=== PATIENT | male | born 1955 | race Caucasian/White ===

== ENCOUNTER 2018-06-30 21:13 | Inpatient (IN) | payer MEDICAID ==
[~2018-06-30] VITALS: Ht 172.7 cm; Wt 88.0 kg
[2018-06-30] MEDS ORDERED: VANCOMYCIN 1 G PREMIX 200 ML IV ONE (22:45)
[2018-06-30] MEDS ORDERED: SODIUM CHLORIDE 0.9% 1000ML BAG (SEPSIS BOLUS) IV ONE (22:45)
[2018-06-30] MEDS ORDERED: PIPERACILLIN/TAZ 3.375G PREMIX 50 ML IV ONE (22:45)
[2018-06-30 23:37] LABS: CHLORIDE 116 mEq/L (98-107)
[2018-06-30 23:43] LABS: HEMATOCRIT. 27.8 % (42.0-52.0); HEMOGLOBIN. 9.2 g/dL (14.0-18.0); MEAN CORPUSCULAR HEMOGLOBIN 28.2 pg (28.0-32.0); MEAN CORPUSCULAR VOLUME 85.4 fL (80.0-94.0); MEAN PLATELET VOLUME 7.7 fl (7.4-10.4); PLATELET 170 x1000/uL (130-400); RED BLOOD CELL COUNT 3.26 mill/uL (4.7-6.1); RED CELL DISTRIBUTION WIDTH 15.3 % (11.6-14.6)
[2018-06-30 23:51] LABS: D-DIMER 12.05 mg/L FEU (<0.50); INR 1.2; PARTIAL THROMBOPLASTIN TIME 27.1 sec (23.4-31.0); PROTHROMBIN TIME 12.5 sec (9.6-11.0)
[2018-07-01] VITALS (8 sets, daily range): BP systolic 81–133; BP diastolic 48–66
[2018-07-01] MEDS ORDERED: ASPIRIN 81MG TABLET PO ONE (00:15)
[2018-07-01] MEDS ORDERED: LORAZEPAM 2MG/ML CPJ IV PRN (00:45)
[2018-07-01] MEDS ORDERED: HYDROCODONE/ACETAMINOPHEN 10/325MG TABLET PO PRN (00:45)
[2018-07-01] MEDS ORDERED: NA PHOS,M-B/NA PHOS,DI-BA ENEMA 118ML PR PRN (00:45)
[2018-07-01] MEDS ORDERED: ENOXAPARIN 40MG/0.4ML SYR SUBCUT SCH (00:45)
[2018-07-01] MEDS ORDERED: HYDRALAZINE 20MG/ML VIAL IV PRN (00:45)
[2018-07-01] MEDS ORDERED: DOCUSATE SODIUM 100MG CAPSULE PO PRN (00:45)
[2018-07-01] MEDS ORDERED: DIPHENHYDRAMINE 50MG/ML VIAL IV PRN (00:45)
[2018-07-01] MEDS ORDERED: ONDANSETRON HCL 4MG/2ML INJ IV PRN (00:45)
[2018-07-01] MEDS ORDERED: CLONIDINE 0.1MG TABLET PO PRN (00:45)
[2018-07-01] MEDS ORDERED: IPRATROPIUM/ALBUTEROL 0.5-3(2.5)MG/3ML NEB INH PRN (00:45)
[2018-07-01] MEDS ORDERED: GUAIFENESIN 200MG/10ML SUGAR FREE UDC PO PRN (00:45)
[2018-07-01] MEDS ORDERED: DEXTROSE 50% WATER 50ML SYRINGE IV PRN (00:45)
[2018-07-01] MEDS ORDERED: PIPERACILLIN/TAZ 2.25G PREMIX 50 ML IV SCH ×2 (00:45→14:00)
[2018-07-01] MEDS ORDERED: MAGNESIUM/ALUMINUM HYDROXIDE/SIMETHICONE 30ML UDC PO PRN (00:45)
[2018-07-01 01:08] LABS: PLATELET ESTIMATE NORMAL
[2018-07-01] MEDS ORDERED: IOHEXOL-350 100 ML BOTTLE ONE (02:23)
[2018-07-01] MEDS ORDERED: ENOXAPARIN 80MG/0.8ML SYR SUBCUT ONE (02:30)
[2018-07-01] MEDS: ACETAMINOPHEN 325MG TABLET PO PRN ×2 (05:41→20:48)
[2018-07-01 06:32] LABS: CREATINE KINASE 90 IU/L (39-308)
[2018-07-01 06:33] LABS: CREATINE KINASE MB FRACTION < 1.0 ng/mL (0.5-3.6)
[2018-07-01] MEDS: INSULIN LISPRO 100 UNITS/ML SUBCUT SCH ×4 (07:50→21:14)
[2018-07-01] MEDS: BLOOD SUGAR DIAGNOSTIC STRIP TEST SCH ×4 (07:59→20:49)
[2018-07-01] MEDS ORDERED: PIPERACILLIN/TAZ 3.375G PREMIX 50 ML IV SCH (09:00)
[2018-07-01] MEDS ORDERED: ENOXAPARIN 30MG/0.3ML SYR SUBCUT SCH (09:00)
[2018-07-01] MEDS: ASPIRIN 81MG EC TABLET PO SCH (09:58)
[2018-07-01] MEDS: PIPERACILLIN/TAZ 3.375G PREMIX 50 ML IV SCH ×3 (09:58→20:48)
[2018-07-01] MEDS: SODIUM CHLORIDE 0.9% 1,000 ML IV SCH ×2 (10:00→21:03)
[2018-07-01] MEDS ORDERED: VANCOMYCIN 1250MG in DEXTROSE 5% WATER 250ML IV SCH (11:00)
[2018-07-01] MEDS: SODIUM CHLORIDE 0.9% INJ 3ML FLUSH IVF SCH ×2 (14:00→21:04)
[2018-07-01] MEDS ORDERED: ENOXAPARIN 80MG/0.8ML SYR SUBCUT SCH (16:00)
[2018-07-01 17:36] LABS: CREATINE KINASE 108 IU/L (39-308)
[2018-07-01 17:38] LABS: CREATINE KINASE MB FRACTION < 1.0 ng/mL (0.5-3.6)
[2018-07-01] MEDS: ENOXAPARIN 60MG/0.6ML SYR SUBCUT SCH (20:49)
[2018-07-01] MEDS: VANCOMYCIN 750 MG PREMIX 150 ML IV SCH (22:53)
[2018-07-02] VITALS: BP 102/51
[2018-07-02] MEDS: PIPERACILLIN/TAZ 3.375G PREMIX 50 ML IV SCH ×2 (03:24→10:40)
[2018-07-02 04:00] VITALS: BP 131/69
[2018-07-02] MEDS: ACETAMINOPHEN 325MG TABLET PO PRN ×2 (05:05→20:48)
[2018-07-02] MEDS: VANCOMYCIN 750 MG PREMIX 150 ML IV SCH ×3 (05:06→22:21)
[2018-07-02] MEDS: SODIUM CHLORIDE 0.9% INJ 3ML FLUSH IVF SCH ×3 (05:06→21:25)
[2018-07-02 07:00] LABS: HEMATOCRIT. 23.6 % (42.0-52.0); MEAN CORPUSCULAR HEMOGLOBIN 28.7 pg (28.0-32.0); MEAN CORPUSCULAR VOLUME 83.9 fL (80.0-94.0); MEAN PLATELET VOLUME 9.2 fl (7.4-10.4); PLATELET 69 x1000/uL (130-400); RED BLOOD CELL COUNT 2.81 mill/uL (4.7-6.1); RED CELL DISTRIBUTION WIDTH 15.9 % (11.6-14.6)
[2018-07-02 07:04] LABS: CHLORIDE 116 mEq/L (98-107)
[2018-07-02 07:23] LABS: HDL CHOLESTEROL 9 mg/dL (40-59); T4 FREE 1.49 ng/dL (0.76-1.46)
[2018-07-02 07:25] LABS: LDL CHOLESTEROL 24 mg/dL (5-100)
[2018-07-02] MEDS: BLOOD SUGAR DIAGNOSTIC STRIP TEST SCH ×4 (07:28→20:49)
[2018-07-02 08:00] VITALS: BP 98/58
[2018-07-02] MEDS: ASPIRIN 81MG EC TABLET PO SCH (08:31)
[2018-07-02] MEDS: ENOXAPARIN 60MG/0.6ML SYR SUBCUT SCH (08:32)
[2018-07-02] MEDS: INSULIN LISPRO 100 UNITS/ML SUBCUT SCH ×4 (08:42→20:49)
[2018-07-02] MEDS ORDERED: POTASSIUM CHLORIDE 20MEQ TABLET SR PO NR (09:00)
[2018-07-02 09:58] LABS: PLATELET ESTIMATE DECREASED
[2018-07-02] MEDS: SODIUM CHLORIDE 0.9% 1,000 ML IV SCH ×2 (11:10→20:55)
[2018-07-02] MEDS: HYDROMORPHONE HCL/PF 2MG/ML CPJ IV PRN (11:40)
[2018-07-02 12:00] VITALS: BP 97/52
[2018-07-02 16:00] VITALS: BP 98/55
[2018-07-02] MEDS: MEROPENEM 1000MG in NORMAL SALINE 100ML IV SCH (18:25)
[2018-07-02] MEDS: APIXABAN 5 MG TABLET PO SCH (18:26)
[2018-07-02 20:33] VITALS: BP 124/52
[2018-07-03] VITALS: BP 129/58
[2018-07-03] MEDS: MEROPENEM 1000MG in NORMAL SALINE 100ML IV SCH ×3 (02:41→18:18)
[2018-07-03 04:00] VITALS: BP 119/54
[2018-07-03 05:48] LABS: HEMATOCRIT. 23.3 % (42.0-52.0); HEMOGLOBIN. 7.8 g/dL (14.0-18.0); MEAN CORPUSCULAR HEMOGLOBIN 28.3 pg (28.0-32.0); MEAN CORPUSCULAR VOLUME 83.9 fL (80.0-94.0); MEAN PLATELET VOLUME 10.1 fl (7.4-10.4); PLATELET 53 x1000/uL (130-400); RED BLOOD CELL COUNT 2.77 mill/uL (4.7-6.1)
[2018-07-03] MEDS: VANCOMYCIN 750 MG PREMIX 150 ML IV SCH (06:03)
[2018-07-03] MEDS: SODIUM CHLORIDE 0.9% INJ 3ML FLUSH IVF SCH ×3 (06:03→21:19)
[2018-07-03 06:11] LABS: CHLORIDE 114 mEq/L (98-107)
[2018-07-03 06:24] LABS: VANCOMYCIN TROUGH 20.6 ug/mL (5.0-10.0)
[2018-07-03] MEDS: BLOOD SUGAR DIAGNOSTIC STRIP TEST SCH ×4 (06:39→21:11)
[2018-07-03 08:54] VITALS: BP 126/69
[2018-07-03] MEDS: ASPIRIN 81MG EC TABLET PO SCH (09:14)
[2018-07-03] MEDS: APIXABAN 5 MG TABLET PO SCH (09:14)
[2018-07-03] MEDS: INSULIN LISPRO 100 UNITS/ML SUBCUT SCH ×4 (09:17→21:19)
[2018-07-03 10:33] LABS: PLATELET ESTIMATE DECREASED
[2018-07-03 12:39] VITALS: BP 124/73
[2018-07-03] MEDS: SODIUM CHLORIDE 0.9% 1,000 ML IV SCH (15:53)
[2018-07-03 17:25] VITALS: BP 119/71
[2018-07-03 20:00] VITALS: BP 147/82
[2018-07-03] MEDS ORDERED: DEXTROSE 50% WATER 50ML SYRINGE IV PRN (23:45)
[2018-07-04] VITALS (7 sets, daily range): BP systolic 102–131; BP diastolic 58–73
[2018-07-04] MEDS: MEROPENEM 1000MG in NORMAL SALINE 100ML IV SCH ×3 (01:13→18:45)
[2018-07-04] MEDS: SODIUM CHLORIDE 0.9% 1,000 ML IV SCH ×2 (01:14→18:45)
[2018-07-04 06:08] LABS: HEMATOCRIT. 21.4 % (42.0-52.0); HEMOGLOBIN. 7.2 g/dL (14.0-18.0); MEAN CORPUSCULAR HEMOGLOBIN 27.9 pg (28.0-32.0); MEAN CORPUSCULAR VOLUME 83.1 fL (80.0-94.0); MEAN PLATELET VOLUME 9.8 fl (7.4-10.4); RED BLOOD CELL COUNT 2.57 mill/uL (4.7-6.1); RED CELL DISTRIBUTION WIDTH 16.1 % (11.6-14.6)
[2018-07-04 06:29] LABS: CHLORIDE 113 mEq/L (98-107)
[2018-07-04] MEDS: SODIUM CHLORIDE 0.9% INJ 3ML FLUSH IVF SCH ×3 (06:46→23:46)
[2018-07-04] MEDS: BLOOD SUGAR DIAGNOSTIC STRIP TEST SCH ×4 (06:46→21:37)
[2018-07-04 06:50] LABS: PLATELET 33 x1000/uL (130-400)
[2018-07-04] MEDS: ASPIRIN 81MG EC TABLET PO SCH (08:28)
[2018-07-04] MEDS: INSULIN LISPRO 100 UNITS/ML SUBCUT SCH ×4 (08:52→21:58)
[2018-07-04 13:14] LABS: PLATELET ESTIMATE MARKEDLY DECREASED
[2018-07-04] MEDS ORDERED: DIATR MEGLU/DIATRIZOATE SOLN 30ML PO SCH (14:30)
[2018-07-04] MEDS: HYDROMORPHONE HCL/PF 2MG/ML CPJ IV PRN (17:39)
[2018-07-04] MEDS ORDERED: SODIUM CHLORIDE 0.9% 500 ML IV ONE (21:30)
[2018-07-04] MEDS: ACETAMINOPHEN 650MG SUPP PR PRN (23:34)
[2018-07-05] VITALS (13 sets, daily range): BP systolic 93–147; BP diastolic 54–80
[2018-07-05] MEDS: MEROPENEM 1000MG in NORMAL SALINE 100ML IV SCH ×3 (01:07→17:03)
[2018-07-05 06:03] LABS: CHLORIDE 114 mEq/L (98-107)
[2018-07-05] MEDS: SODIUM CHLORIDE 0.9% INJ 3ML FLUSH IVF SCH ×3 (06:05→22:00)
[2018-07-05] MEDS: SODIUM CHLORIDE 0.9% 1,000 ML IV SCH ×2 (06:05→21:14)
[2018-07-05] MEDS: BLOOD SUGAR DIAGNOSTIC STRIP TEST SCH ×4 (06:10→21:00)
[2018-07-05 06:17] LABS: HEMATOCRIT. 23.3 % (42.0-52.0); HEMOGLOBIN. 7.7 g/dL (14.0-18.0); MEAN CORPUSCULAR HEMOGLOBIN 27.8 pg (28.0-32.0); MEAN CORPUSCULAR VOLUME 83.7 fL (80.0-94.0); RED BLOOD CELL COUNT 2.78 mill/uL (4.7-6.1); RED CELL DISTRIBUTION WIDTH 16.5 % (11.6-14.6)
[2018-07-05] MEDS: ASPIRIN 81MG EC TABLET PO SCH (07:56)
[2018-07-05] MEDS: INSULIN LISPRO 100 UNITS/ML SUBCUT SCH ×4 (08:04→21:24)
[2018-07-05] MEDS ORDERED: DIATR MEGLU/DIATRIZOATE SOLN 30ML PO NR (09:00)
[2018-07-05 10:16] LABS: PLATELET 58 x1000/uL (130-400)
[2018-07-05 10:25] LABS: PLATELET ESTIMATE DECREASED
[2018-07-05] MEDS: ACETAMINOPHEN 650MG SUPP PR PRN (20:55)
[2018-07-05 23:50] LABS: CLARITY URINE CLOUDY (CLEAR); COLOR URINE DARK YELLOW (YELLOW); KETONES URINE NEGATIVE (NEGATIVE); LEUKOCYTE ESTERASE URINE 1+ (NEGATIVE); NITRITE URINE POSITIVE (NEGATIVE); OCCULT BLOOD URINE NEGATIVE (NEGATIVE); PH URINE 5.5 (4.5-8.0); PROTEIN URINE 1+ (NEGATIVE); SPECIFIC GRAVITY URINE 1.021 (1.005-1.030); UROBILINOGEN URINE 0.2 E.U./dL (0.2-1.0)
[2018-07-06] VITALS (12 sets, daily range): BP systolic 94–165; BP diastolic 42–78
[2018-07-06] MEDS: METOCLOPRAMIDE HCL 10MG/2ML VIAL IV PRN ×2 (00:14→20:30)
[2018-07-06] MEDS: MEROPENEM 1000MG in NORMAL SALINE 100ML IV SCH ×3 (01:50→17:06)
[2018-07-06] MEDS: ACETAMINOPHEN 650MG SUPP PR PRN ×2 (02:28→20:30)
[2018-07-06] MEDS: SODIUM CHLORIDE 0.9% INJ 3ML FLUSH IVF SCH ×3 (06:33→22:00)
[2018-07-06] MEDS: BLOOD SUGAR DIAGNOSTIC STRIP TEST SCH ×4 (06:33→21:00)
[2018-07-06 06:47] LABS: HEMATOCRIT. 23.5 % (42.0-52.0); HEMOGLOBIN. 8.2 g/dL (14.0-18.0); MEAN CORPUSCULAR HEMOGLOBIN 28.4 pg (28.0-32.0); MEAN CORPUSCULAR VOLUME 81.8 fL (80.0-94.0); MEAN PLATELET VOLUME 10.3 fl (7.4-10.4); PLATELET 66 x1000/uL (130-400); RED BLOOD CELL COUNT 2.88 mill/uL (4.7-6.1); RED CELL DISTRIBUTION WIDTH 16.6 % (11.6-14.6)
[2018-07-06 06:49] LABS: CHLORIDE 109 mEq/L (98-107)
[2018-07-06] MEDS: ASPIRIN 81MG EC TABLET PO SCH (07:54)
[2018-07-06] MEDS: INSULIN LISPRO 100 UNITS/ML SUBCUT SCH ×4 (07:55→21:47)
[2018-07-06] MEDS: SODIUM CHLORIDE 0.9% 1,000 ML IV SCH ×2 (08:30→21:50)
[2018-07-06 11:27] LABS: PLATELET ESTIMATE DECREASED
[2018-07-06] MEDS: ACETAMINOPHEN 325MG TABLET PO PRN (12:56)
[2018-07-07] VITALS (24 sets, daily range): BP systolic 92–178; BP diastolic 47–97
[2018-07-07] MEDS: MEROPENEM 1000MG in NORMAL SALINE 100ML IV SCH ×3 (02:00→21:45)
[2018-07-07] MEDS: METOCLOPRAMIDE HCL 10MG/2ML VIAL IV PRN ×3 (02:00→22:28)
[2018-07-07] MEDS: ACETAMINOPHEN 650MG SUPP PR PRN ×3 (02:26→20:39)
[2018-07-07] MEDS: SODIUM CHLORIDE 0.9% INJ 3ML FLUSH IVF SCH ×3 (06:00→22:50)
[2018-07-07 06:45] LABS: HEMOGLOBIN. 7.2 g/dL (14.0-18.0); MEAN CORPUSCULAR HEMOGLOBIN 27.8 pg (28.0-32.0); MEAN CORPUSCULAR VOLUME 80.5 fL (80.0-94.0); MEAN PLATELET VOLUME 10.2 fl (7.4-10.4); PLATELET 123 x1000/uL (130-400); RED BLOOD CELL COUNT 2.58 mill/uL (4.7-6.1); RED CELL DISTRIBUTION WIDTH 16.2 % (11.6-14.6)
[2018-07-07] MEDS: BLOOD SUGAR DIAGNOSTIC STRIP TEST SCH ×4 (06:50→21:49)
[2018-07-07 07:11] LABS: HEMATOCRIT. 20.7 % (42.0-52.0)
[2018-07-07 07:13] LABS: CHLORIDE 104 mEq/L (98-107)
[2018-07-07] MEDS: ASPIRIN 81MG EC TABLET PO SCH (08:02)
[2018-07-07] MEDS: INSULIN LISPRO 100 UNITS/ML SUBCUT SCH ×4 (08:09→22:42)
[2018-07-07 11:41] LABS: PLATELET ESTIMATE SLIGHTLY DECREASED
[2018-07-07] MEDS: SODIUM CHLORIDE 0.9% 1,000 ML IV SCH (11:44)
[2018-07-07] MEDS ORDERED: KCL 20MEQ/100ML PREMIX 100 ML IV NR ×2 (14:00→22:00)
[2018-07-07] MEDS: DEXT 5%/0.45% NACL 1000ML 1,000 ML IV SCH (21:46)
[2018-07-07 22:36] LABS: HEMATOCRIT 28.3 % (42.0-52.0); HEMOGLOBIN 9.8 g/dL (14.0-18.0)
[2018-07-08] VITALS (16 sets, daily range): BP systolic 93–174; BP diastolic 45–99
[2018-07-08] MEDS: ACETAMINOPHEN 650MG SUPP PR PRN ×2 (02:17→20:39)
[2018-07-08] MEDS: METOCLOPRAMIDE HCL 10MG/2ML VIAL IV PRN (04:22)
[2018-07-08] MEDS: MEROPENEM 1000MG in NORMAL SALINE 100ML IV SCH ×3 (05:11→18:16)
[2018-07-08] MEDS: BLOOD SUGAR DIAGNOSTIC STRIP TEST SCH ×4 (06:02→21:37)
[2018-07-08] MEDS: SODIUM CHLORIDE 0.9% INJ 3ML FLUSH IVF SCH ×3 (06:02→22:10)
[2018-07-08] MEDS: INSULIN LISPRO 100 UNITS/ML SUBCUT SCH ×4 (07:41→21:54)
[2018-07-08 07:55] LABS: CHLORIDE 105 mEq/L (98-107)
[2018-07-08 08:16] LABS: HEMATOCRIT. 24.7 % (42.0-52.0); HEMOGLOBIN. 8.6 g/dL (14.0-18.0); MEAN CORPUSCULAR HEMOGLOBIN 28.7 pg (28.0-32.0); MEAN CORPUSCULAR VOLUME 82.3 fL (80.0-94.0); MEAN PLATELET VOLUME 9.6 fl (7.4-10.4); PLATELET 175 x1000/uL (130-400); RED CELL DISTRIBUTION WIDTH 16.8 % (11.6-14.6)
[2018-07-08] MEDS: ASPIRIN 81MG EC TABLET PO SCH (09:00)
[2018-07-08] MEDS ORDERED: POTASSIUM CHLORIDE INJ 40 MEQ in DEXT 5% WATER 250 ML IV NR (11:00)
[2018-07-08 12:43] LABS: PLATELET ESTIMATE NORMAL
[2018-07-08] MEDS: DEXT 5%/0.45% NACL 1000ML 1,000 ML IV SCH (13:03)
[2018-07-08] MEDS ORDERED: CHLORPROMAZINE HCL 10 MG TABLET PO PRN (14:30)
[2018-07-08] MEDS ORDERED: APIXABAN 5 MG TABLET PO SCH (15:00)
[2018-07-08] MEDS: MORPHINE SULFATE 2 MG/ML CPJ (NOT FOR IM USE) IV PRN ×2 (16:30→20:40)
[2018-07-08 17:40] LABS: HEMATOCRIT 23.5 % (42.0-52.0); HEMOGLOBIN 8.2 g/dL (14.0-18.0); MEAN CORPUSCULAR HEMOGLOBIN 28.6 pg (28.0-32.0); MEAN CORPUSCULAR VOLUME 81.8 fL (80.0-94.0); PLATELET 189 x1000/uL (130-400); RED BLOOD CELL COUNT 2.87 mill/uL (4.7-6.1); RED CELL DISTRIBUTION WIDTH 16.7 % (11.6-14.6)
[2018-07-08] MEDS: HEPARIN 5000 UNITS/ML VIAL SUBCUT SCH (22:00)
[2018-07-09] VITALS (12 sets, daily range): BP systolic 81–152; BP diastolic 39–77
[2018-07-09] MEDS: MORPHINE SULFATE 2 MG/ML CPJ (NOT FOR IM USE) IV PRN ×4 (02:03→22:53)
[2018-07-09] MEDS: MEROPENEM 1000MG in NORMAL SALINE 100ML IV SCH ×2 (02:15→10:39)
[2018-07-09] MEDS: PROCHLORPERAZINE 10MG/2ML VIAL IV PRN ×3 (02:16→14:00)
[2018-07-09] MEDS: SODIUM CHLORIDE 0.9% INJ 3ML FLUSH IVF SCH ×3 (05:24→21:59)
[2018-07-09 06:00] LABS: HEMATOCRIT. 22.4 % (42.0-52.0); HEMOGLOBIN. 7.8 g/dL (14.0-18.0); MEAN CORPUSCULAR HEMOGLOBIN 28.6 pg (28.0-32.0); MEAN CORPUSCULAR VOLUME 82.4 fL (80.0-94.0); MEAN PLATELET VOLUME 9.2 fl (7.4-10.4); PLATELET 212 x1000/uL (130-400); RED BLOOD CELL COUNT 2.71 mill/uL (4.7-6.1); RED CELL DISTRIBUTION WIDTH 16.9 % (11.6-14.6)
[2018-07-09] MEDS: HEPARIN 5000 UNITS/ML VIAL SUBCUT SCH ×3 (06:00→21:58)
[2018-07-09] MEDS: BLOOD SUGAR DIAGNOSTIC STRIP TEST SCH ×4 (06:17→21:13)
[2018-07-09 06:43] LABS: CHLORIDE 107 mEq/L (98-107)
[2018-07-09] MEDS: INSULIN LISPRO 100 UNITS/ML SUBCUT SCH ×4 (07:57→21:16)
[2018-07-09] MEDS: ASPIRIN 81MG EC TABLET PO SCH (09:00)
[2018-07-09 10:38] LABS: PLATELET ESTIMATE NORMAL
[2018-07-09] MEDS: DEXT 5%/0.45% NACL 1000ML 1,000 ML IV SCH (12:02)
[2018-07-09] MEDS ORDERED: POTASSIUM CHLORIDE INJ 40 MEQ in DEXT 5% WATER 250 ML IV NR (13:00)
[2018-07-09] MEDS: LEVOFLOXACIN 500MG PREMIX 100 ML IV SCH (16:08)
[2018-07-09] MEDS: CHLORPROMAZINE HCL 25MG/1ML AMP IM PRN (16:22)
[2018-07-09] MEDS: AMPICILLIN SOD/SULBACTAM NA 3 G in SODIUM CHLORIDE 0.9% 100 ML IV SCH ×2 (17:31→21:13)
[2018-07-10] VITALS (13 sets, daily range): BP systolic 85–150; BP diastolic 42–73
[2018-07-10] MEDS: AMPICILLIN SOD/SULBACTAM NA 3 G in SODIUM CHLORIDE 0.9% 100 ML IV SCH ×4 (03:10→20:35)
[2018-07-10] MEDS: SODIUM CHLORIDE 0.9% INJ 3ML FLUSH IVF SCH ×3 (06:23→23:25)
[2018-07-10] MEDS: HEPARIN 5000 UNITS/ML VIAL SUBCUT SCH ×3 (06:25→23:34)
[2018-07-10] MEDS: BLOOD SUGAR DIAGNOSTIC STRIP TEST SCH ×4 (07:00→21:00)
[2018-07-10] MEDS: ASPIRIN 81MG EC TABLET PO SCH (08:50)
[2018-07-10] MEDS ORDERED: APIXABAN 5 MG TABLET PO SCH (09:00)
[2018-07-10] MEDS: INSULIN LISPRO 100 UNITS/ML SUBCUT SCH ×4 (09:03→21:49)
[2018-07-10] MEDS: MORPHINE SULFATE 2 MG/ML CPJ (NOT FOR IM USE) IV PRN ×3 (09:48→23:24)
[2018-07-10] MEDS: CHLORPROMAZINE HCL 25MG/1ML AMP IM PRN ×2 (10:21→17:38)
[2018-07-10] MEDS: DEXT 5%/0.45% NACL 1000ML 1,000 ML IV SCH (13:23)
[2018-07-10] MEDS: LEVOFLOXACIN 500MG PREMIX 100 ML IV SCH (13:23)
[2018-07-10] MEDS: PROCHLORPERAZINE 10MG/2ML VIAL IV PRN (21:47)
[2018-07-11] VITALS (12 sets, daily range): BP systolic 81–152; BP diastolic 39–92
[2018-07-11] MEDS: AMPICILLIN SOD/SULBACTAM NA 3 G in SODIUM CHLORIDE 0.9% 100 ML IV SCH ×4 (03:12→20:52)
[2018-07-11] MEDS: MORPHINE SULFATE 2 MG/ML CPJ (NOT FOR IM USE) IV PRN ×2 (03:12→17:44)
[2018-07-11] MEDS: HEPARIN 5000 UNITS/ML VIAL SUBCUT SCH (06:16)
[2018-07-11] MEDS: SODIUM CHLORIDE 0.9% INJ 3ML FLUSH IVF SCH ×3 (06:16→22:23)
[2018-07-11] MEDS: BLOOD SUGAR DIAGNOSTIC STRIP TEST SCH ×4 (06:56→21:30)
[2018-07-11] MEDS: CHLORPROMAZINE HCL 25MG/1ML AMP IM PRN (06:56)
[2018-07-11 07:40] LABS: MEAN CORPUSCULAR HEMOGLOBIN 28.4 pg (28.0-32.0); MEAN CORPUSCULAR VOLUME 82.6 fL (80.0-94.0); MEAN PLATELET VOLUME 9.2 fl (7.4-10.4); PLATELET 348 x1000/uL (130-400); RED BLOOD CELL COUNT 2.35 mill/uL (4.7-6.1); RED CELL DISTRIBUTION WIDTH 17.8 % (11.6-14.6)
[2018-07-11] MEDS: INSULIN LISPRO 100 UNITS/ML SUBCUT SCH ×4 (07:47→21:34)
[2018-07-11 07:50] LABS: CHLORIDE 110 mEq/L (98-107)
[2018-07-11] MEDS: ASPIRIN 81MG EC TABLET PO SCH (08:03)
[2018-07-11] MEDS: PROCHLORPERAZINE 10MG/2ML VIAL IV PRN ×2 (08:05→13:20)
[2018-07-11 08:36] LABS: HEMOGLOBIN. 6.7 g/dL (14.0-18.0)
[2018-07-11 08:37] LABS: HEMATOCRIT. 19.4 % (42.0-52.0)
[2018-07-11] MEDS: DEXT 5%/0.45% NACL 1000ML 1,000 ML IV SCH (11:52)
[2018-07-11] MEDS: LEVOFLOXACIN 500MG PREMIX 100 ML IV SCH (14:23)
[2018-07-11 16:58] LABS: PLATELET ESTIMATE NORMAL
[2018-07-12] VITALS (16 sets, daily range): BP systolic 75–106; BP diastolic 37–57
[2018-07-12] MEDS: CHLORPROMAZINE HCL 25MG/1ML AMP IM PRN ×2 (01:56→18:54)
[2018-07-12] MEDS: AMPICILLIN SOD/SULBACTAM NA 3 G in SODIUM CHLORIDE 0.9% 100 ML IV SCH ×4 (02:51→21:46)
[2018-07-12] MEDS: SODIUM CHLORIDE 0.9% INJ 3ML FLUSH IVF SCH ×3 (05:50→21:19)
[2018-07-12] MEDS: BLOOD SUGAR DIAGNOSTIC STRIP TEST SCH ×4 (06:49→21:14)
[2018-07-12] MEDS: INSULIN LISPRO 100 UNITS/ML SUBCUT SCH ×4 (06:52→21:30)
[2018-07-12] MEDS: ASPIRIN 81MG EC TABLET PO SCH (09:00)
[2018-07-12] MEDS: DEXT 5%/0.45% NACL 1000ML 1,000 ML IV SCH (13:36)
[2018-07-12] MEDS: LEVOFLOXACIN 500MG PREMIX 100 ML IV SCH (13:36)
[2018-07-12] MEDS: MORPHINE SULFATE 2 MG/ML CPJ (NOT FOR IM USE) IV PRN (21:17)
[2018-07-13] VITALS (11 sets, daily range): BP systolic 81–101; BP diastolic 38–56
[2018-07-13] MEDS: MORPHINE SULFATE 2 MG/ML CPJ (NOT FOR IM USE) IV PRN ×2 (04:24→13:06)
[2018-07-13] MEDS: AMPICILLIN SOD/SULBACTAM NA 3 G in SODIUM CHLORIDE 0.9% 100 ML IV SCH ×3 (04:25→15:04)
[2018-07-13] MEDS: INSULIN LISPRO 100 UNITS/ML SUBCUT SCH ×2 (05:30→13:02)
[2018-07-13] MEDS: BLOOD SUGAR DIAGNOSTIC STRIP TEST SCH ×2 (05:38→11:50)
[2018-07-13] MEDS: SODIUM CHLORIDE 0.9% INJ 3ML FLUSH IVF SCH ×2 (05:38→13:03)
[2018-07-13] MEDS: ASPIRIN 81MG EC TABLET PO SCH (08:36)
[2018-07-13] MEDS: DEXT 5%/0.45% NACL 1000ML 1,000 ML IV SCH (12:54)
[2018-07-13] MEDS: LEVOFLOXACIN 500MG PREMIX 100 ML IV SCH (13:07)
[2018-07-14] MEDS ORDERED: LEVOFLOXACIN 500MG TABLET PO SCH (11:00)
== END 2018-07-13 17:20 | DRG 721 ==
LOC: ER 21:13 → EDBEDREQTM 07-01 00:17 → EDBEDREQ 07-01 00:17 → 6WST 07-01 03:13 → EDBEDREQ 07-01 03:15 → EDBEDREQTM 07-01 03:15 → ENRESERV 07-01 05:30 → 3WST 07-04 23:25
PROVIDERS: ADMIT Internal Medicine; ATTEND Internal Medicine
PROC: 02PYX3Z Removal of Infusion Device from Great Vessel, External Approach (ICD-10-PCS; principal; 2018-07-03)
PROC: 30233N1 Transfusion of Nonautologous Red Blood Cells into Peripheral Vein, Percutaneous Approach (ICD-10-PCS; 2018-07-07)
DX: T80.211A Bloodstream infection due to central venous catheter, initial encounter (principal); I26.99 Other pulmonary embolism without acute cor pulmonale; A41.59 Other Gram-negative sepsis; J69.0 Pneumonitis due to inhalation of food and vomit; E43 Unspecified severe protein-calorie malnutrition; J96.00 Acute respiratory failure, unspecified whether with hypoxia or hypercapnia; C78.7 Secondary malignant neoplasm of liver and intrahepatic bile duct; C25.9 Malignant neoplasm of pancreas, unspecified; B96.1 Klebsiella pneumoniae [K. pneumoniae] as the cause of diseases classified elsewhere; Z66 Do not resuscitate; D68.59 Other primary thrombophilia; R65.20 Severe sepsis without septic shock; E87.2 Acidosis; E78.5 Hyperlipidemia, unspecified; I69.351 Hemiplegia and hemiparesis following cerebral infarction affecting right dominant side; E05.90 Thyrotoxicosis, unspecified without thyrotoxic crisis or storm; E11.9 Type 2 diabetes mellitus without complications; E78.00 Pure hypercholesterolemia, unspecified; I10 Essential (primary) hypertension; N47.1 Phimosis; Z51.5 Encounter for palliative care; R74.0 Nonspecific elevation of levels of transaminase and lactic acid dehydrogenase [LDH]; R33.9 Retention of urine, unspecified; D89.9 Disorder involving the immune mechanism, unspecified; D61.810 Antineoplastic chemotherapy induced pancytopenia; J44.9 Chronic obstructive pulmonary disease, unspecified; Z68.29 Body mass index [BMI] 29.0-29.9, adult
CPT/HCPCS: 36415; 71045; 71275; 74176; 80048; 80061; 80076; 80202; 82270; 82550; 82553; 82962; 83036; 83605; 83880; 84145; 84439; 84443; 84484; 85014; 85018; 85027; 85379; 86850; 86900; 86920; 87077; 87186; 92610; 93005; 93306; 93970; 96365; 96368; 96372; 99291; A6261; J0295; J0360; J0780; J1170; J1644; J1650; J1815; J1956; J2185; J2270; J2543; J2765; J3230; J3370; J3480; J7030; J7040; J7050; J7060; P9016; Q9963; Q9967